=== PATIENT | female | born 1930 | race Caucasian/White ===

== ENCOUNTER 2017-03-28 16:29 | Inpatient (IN) | payer MEDICARE ==
[~2017-03-28] VITALS: Ht 160 cm; Wt 76.9 kg
--- NOTE | ~2017-03-28 | HM ---
[place], [place] HOLTER MONITOR REPORT [id number] UNIT #: [id number] ROOM: [id number] DOCTOR: LICO HUDSON MD BIRTHDATE: [birth year] DOS: 04/01/2017 A 24-HOUR HOLTER MONITOR This study was recorded from 03/30/2017 to 03/31/2017. The recording was analyzed, interpreted and dictated on 04/01/2017, ordered by Dr. Franca Green. INDICATIONS: Bradycardia. FINDINGS: The patient was monitored for 24 hours using a Holter device. The basic rhythm was normal sinus rhythm, average heart rate was 62, heart rate in sinus rhythm varied from 43 to 103 beats per minute. No significant ventricular arrhythmias were noted. There was no ventricular tachycardia seen. Frequent premature atrial contractions with several short runs of supraventricular tachycardia were seen. The fastest of these was at 145 beats per minute, the longest was 16 beats. No atrial fibrillation was recorded. There were no prolonged pauses. No diary was submitted. IMPRESSION: 1. Normal sinus rhythm. 2. No significant bradycardia recorded. The patient did not have any prolonged pauses. 3. Several short runs of supraventricular tachycardia were recorded. The patient listed no symptoms. LICO HUDSON MD CM:HOLTER:HOLTER MONITOR REPORT [id number] LICO HUDSON MD
[2017-03-28 16:39] VITALS: BP 136/53
[2017-03-28 16:57] VITALS: BP 144/48
[2017-03-28 17:14] LABS: BASO % 0.5 % (0.0-1.0); EOS # 0.1 10*3/uL (0.0-0.4); HEMATOCRIT 41.3 % (37.0-47.0); HEMOGLOBIN 13.3 g/dl (12.0-16.0); LYMPH # 1.2 10*3/uL (1.3-4.4); LYMPH % 21.2 % (27.0-41.0); MEAN CELL VOLUME 94.5 fl (81.0-99.0); MEAN CORPUSCULAR HGB 30.4 pg (27.0-31.0); MEAN CORPUSCULAR HGB CONC 32.2 g/dl (33.0-37.0); MEAN PLATELET VOLUME 9.6 fl (9.6-12.3); MONO # 0.4 10*3/uL (0.1-1.0); MONO % 7.3 % (3.0-9.0); NEUT # 4.1 10*3/uL (2.3-7.9); NEUT % 69.8 % (47.0-73.0); PLATELET COUNT AUTOMATED 245 10*3/uL (130-400); RED BLOOD COUNT 4.37 10*6/uL (4.10-5.10); RED CELL DISTRI WIDTH 13.1 % (0-14.5); WHITE BLOOD COUNT 5.9 10*3/uL (4.8-10.8)
[2017-03-28 17:31] LABS: ACT PARTIAL THROMBO TIME 22.3 SECONDS (20.8-31.5); ALBUMIN 3.6 gm/dl (3.1-4.5); ALKALINE PHOSPHATASE 117 U/L (45-117); BUN 18 mg/dl (7-24); CHLORIDE 105 mmol/L (98-107); CREATININE 0.62 mg/dL (0.55-1.02); LIPASE 159 U/L (73-393); POTASSIUM 3.9 mmol/L (3.5-5.1); SGOT/AST 27 IU/L (3-35); SGPT/ALT 24 U/L (12-78); SODIUM 140 mmol/L (136-145); TOTAL PROTEIN 7.2 gm/dL (6.4-8.2)
[2017-03-28 17:32] LABS: TROPONIN I < 0.015 ng/ml (<0.045)
[2017-03-28 18:39] VITALS: BP 162/63
[2017-03-28 18:57] LABS: BILIRUBIN NEGATIVE (NEGATIVE); BLOOD NEGATIVE (NEGATIVE); CLARITY SL CLOUDY (CLEAR); COLOR YELLOW (YELLOW); GLUCOSE NEGATIVE (NEGATIVE); KETONE 1+ (NEGATIVE); LEUKO ESTERASE 1+ (NEGATIVE); NITRITE NEGATIVE (NEGATIVE); PH 5.5 (5.0-9.0); UROBILINOGEN 0.2 E.U./dl (0.2-1.0)
[2017-03-28 19:02] LABS: BACTERIA 1+
[2017-03-28 19:04] LABS: WBC 41-50 wbc/hpf (0-5)
[2017-03-29 04:00] VITALS: BP 115/46
[2017-03-29 06:09] LABS: BASO % 0.4 % (0.0-1.0); EOS # 0.1 10*3/uL (0.0-0.4); EOS % 0.7 % (1.0-4.0); HEMATOCRIT 38.4 % (37.0-47.0); HEMOGLOBIN 12.4 g/dl (12.0-16.0); LYMPH # 1.8 10*3/uL (1.3-4.4); LYMPH % 24.2 % (27.0-41.0); MEAN CELL VOLUME 94.8 fl (81.0-99.0); MEAN CORPUSCULAR HGB 30.6 pg (27.0-31.0); MEAN CORPUSCULAR HGB CONC 32.3 g/dl (33.0-37.0); MEAN PLATELET VOLUME 10.1 fl (9.6-12.3); MONO # 0.6 10*3/uL (0.1-1.0); NEUT % 66.4 % (47.0-73.0); PLATELET COUNT AUTOMATED 250 10*3/uL (130-400); RED BLOOD COUNT 4.05 10*6/uL (4.10-5.10); WHITE BLOOD COUNT 7.5 10*3/uL (4.8-10.8)
[2017-03-29 06:14] LABS: ALBUMIN 3.2 gm/dl (3.1-4.5); ALKALINE PHOSPHATASE 102 U/L (45-117); BUN 14 mg/dl (7-24); CHLORIDE 107 mmol/L (98-107); CHOLESTEROL 116 mg/dL (<200); CREATININE 0.59 mg/dL (0.55-1.02); FREE T4 1.08 ng/dl (0.76-1.46); HDL CHOLESTEROL 48 mg/dl (40-60); LDL CHOLESTEROL 45 mg/dL (9-159); PHOSPHOROUS 3.1 mg/dL (2.5-4.9); POTASSIUM 3.8 mmol/L (3.5-5.1); SGOT/AST 22 IU/L (3-35); SGPT/ALT 19 U/L (12-78); SODIUM 142 mmol/L (136-145); TOTAL PROTEIN 6.5 gm/dL (6.4-8.2); TRIGLYCERIDES 114 mg/dl (<150); VLDL CHOLESTEROL 23 mg/dL (6-40)
[2017-03-29 06:19] LABS: ACT PARTIAL THROMBO TIME 23.5 SECONDS (20.8-31.5)
[2017-03-29 07:18] LABS: VITAMIN D, 25-HYDROXY 20.4 ng/mL (30-100)
[2017-03-29 08:00] VITALS: BP 134/40
[2017-03-29] MEDS ORDERED: INDERAL LA PO (09:35)
[2017-03-29 12:00] VITALS: BP 132/50
[2017-03-29 16:00] VITALS: BP 134/50
[2017-03-29 20:00] VITALS: BP 146/51
[2017-03-30] VITALS: BP 148/57
[2017-03-30 07:13] LABS: HEMATOCRIT 36.4 % (37.0-47.0); HEMOGLOBIN 11.8 g/dl (12.0-16.0); MEAN CELL VOLUME 95.8 fl (81.0-99.0); WHITE BLOOD COUNT 5.1 10*3/uL (4.8-10.8)
[2017-03-30 07:14] LABS: BASO % 0.6 % (0.0-1.0); EOS # 0.2 10*3/uL (0.0-0.4); EOS % 4.7 % (1.0-4.0); LYMPH # 1.6 10*3/uL (1.3-4.4); LYMPH % 31.7 % (27.0-41.0); MEAN CORPUSCULAR HGB 31.1 pg (27.0-31.0); MEAN CORPUSCULAR HGB CONC 32.4 g/dl (33.0-37.0); MEAN PLATELET VOLUME 9.8 fl (9.6-12.3); MONO # 0.5 10*3/uL (0.1-1.0); MONO % 9.2 % (3.0-9.0); NEUT # 2.7 10*3/uL (2.3-7.9); NEUT % 53.6 % (47.0-73.0); PLATELET COUNT AUTOMATED 192 10*3/uL (130-400)
[2017-03-30 07:40] LABS: BUN 10 mg/dl (7-24); CHLORIDE 106 mmol/L (98-107); CREATININE 0.58 mg/dL (0.55-1.02); POTASSIUM 3.9 mmol/L (3.5-5.1); SODIUM 143 mmol/L (136-145)
[2017-03-30 08:00] VITALS: BP 152/58
[2017-03-30 12:00] VITALS: BP 138/80; BP 162/62
[2017-03-30] MEDS ORDERED: GEMFIBROZIL600 MG PO (13:27)
[2017-03-30] MEDS ORDERED: PROPRANOLOL HY120 MG PO (13:27)
[2017-03-30] MEDS ORDERED: BENAZEPRIL HYDR20 MG PO (13:28)
[2017-03-30] MEDS ORDERED: ATORVASTATIN CA20 M1 PO (13:28)
[2017-03-30] MEDS ORDERED: CIPRO500 MG PO (14:46)
[2017-03-30 16:00] VITALS: BP 156/56
== END 2017-03-30 16:19 | disposition home or self-care (01) | DRG 690 ==
LOC: ED 16:29 → EDHOLD 18:08 → 4E 18:08
PROVIDERS: Emergency Medicine; Hospitalist; Student in an Organized Health Care Education/Training Program
DX: N30.00 Acute cystitis without hematuria (principal); E11.9 Type 2 diabetes mellitus without complications; I44.7 Left bundle-branch block, unspecified; E83.51 Hypocalcemia; E78.5 Hyperlipidemia, unspecified; R55 Syncope and collapse; G25.0 Essential tremor; I10 Essential (primary) hypertension; H40.9 Unspecified glaucoma; Z98.42 Cataract extraction status, left eye; Z98.41 Cataract extraction status, right eye; Z90.710 Acquired absence of both cervix and uterus; Z87.891 Personal history of nicotine dependence; Z84.89 Family history of other specified conditions; Z88.2 Allergy status to sulfonamides; Z79.899 Other long term (current) drug therapy